=== PATIENT | male | born 1985 | race Caucasian/White ===

== ENCOUNTER 2016-10-01 09:43 | Emergency (ER) | payer OTHER ==
[~2016-10-01] VITALS: Ht 182.9 cm; Wt 108.9 kg
--- NOTE | 2016-10-01 09:58 | NUR ---
PT AMBULATED TO BED 5.
[2016-10-01 10:01] VITALS: BP 132/88
--- NOTE | 2016-10-01 10:06 | NUR ---
ER MD DR. ROBERT EVALUATING PT AT BEDSIDE.
--- NOTE | 2016-10-01 10:15 | NUR ---
31 M C/O DIZZINESS WITH RANDOM VERTIGO EPISODES X 1 DAY; PT ALSO C/O "UNABLE TO CONCENTRATE OR "FOCUS"; AAO X4; GCS=15; PERRLA BL EYES; NO ACUTE NEURO DEFICITS NOTED; LUNGS CLEAR BL; RR ARE EVEN AND UNLABORED; SKIN WARM/PINK/DRY; PT DENIES ANY FEVER, CP, SOB, OR COUGH AT THIS TIME; PATIENT STATES PAIN OF 2/10 ON A NUMERIC PAIN SCALE AT THIS TIME; PT STATES PAIN IS "ALL OVER HEAD....PRESSURE PAIN"; VSS; PATIENT POSITIONED FOR COMFORT; HOB ELEVATED; BEDRAILS UP X2; BED DOWN; ALL NEEDS MET AT THIS TIME; MD ROBERT BY BEDSIDE EXAMING PT; WILL CONTINUE TO MONITOR
[2016-10-01] MEDS: NACL 0.9% 1,000 ML IV ONE (10:24)
[2016-10-01 10:31] LABS: BASOPHILS # (AUTO) 0.3 K/uL (0.00-0.22); EOSINOPHILS # (AUTO) 0.4 K/uL (0-0.4); EOSINOPHILS % (AUTO) 6.3 % (0.0-4.0); HEMATOCRIT 44.5 % (36-52); HEMOGLOBIN 14.7 g/dL (12.0-18.0); LYMPHOCYTES % (AUTO) 31.1 % (20.5-51.1); MEAN CORPUSCULAR HEMOGLOBIN 30 pg (27-31); MEAN CORPUSCULAR HGB CONC 33 g/dL (33-37); MEAN CORPUSCULAR VOLUME 91 fL (80-94); MONOCYTES # (AUTO) 0.7 K/uL (0.8-1.0); MONOCYTES % (AUTO) 10.3 % (1.7-9.3); NEUTROPHILS % (AUTO) 48.3 % (42.2-75.2); PLATELET COUNT (AUTO) 166 K/uL (140-450); RED BLOOD CELL COUNT(AUTO) 4.92 MIL/uL (4.20-6.10); RED CELL DISTRIBUTION WIDTH 12.8 % (11.6-13.7); WHITE BLOOD COUNT (AUTO) 6.4 K/uL (4.8-10.8)
[2016-10-01] MEDS: ONDANSETRON 4 MG/2 ML VIAL IVP ONE (10:33)
[2016-10-01 10:34] LABS: APPEARANCE,URINE CLEAR (CLEAR); BILIRUBIN,URINE NEGATIVE (NEGATIVE); BLOOD, URINE NEGATIVE (NEGATIVE); COLOR,URINE YELLOW (YELLOW); LEUKOCYTE ESTERASE ,URINE NEGATIVE (NEGATIVE); NITRITE, URINE NEGATIVE (NEGATIVE); PH,URINE 6.5 (5.0-9.0); PROTEIN,URINE NEGATIVE (NEGATIVE); UGLUCOSE NEGATIVE (NEGATIVE); UROBILINOGEN,URINE 0.2 EU/dL (0.2 - 1)
[2016-10-01 10:43] LABS: BACTERIA,URINE 0-2 (RARE) /HPF (None Seen); RBC,URINE NONE SEEN /HPF (0-5); SQUAMOUS EPITHELIAL CELL,UR 0-3 (FEW) /LPF (0-3 (FEW)); WBC,URINE 0-5 (RARE) /HPF (0-5)
[2016-10-01 10:44] LABS: ANION GAP 10.8 (8-16); CALCIUM 9.2 mg/dL (8.5-10.1); CARBON DIOXIDE 28.3 mmol/L (21-32); CREATININE 1.2 mg/dL (0.7-1.3); POTASSIUM 4.1 mmol/L (3.5-5.1)
[2016-10-01 10:50] LABS: MAGNESIUM 1.9 mg/dL (1.8-2.4); TOTAL BILIRUBIN 0.7 mg/dL (0.0-1.0); TOTAL PROTEIN, SERUM 7.9 g/dL (6.4-8.2)
[2016-10-01 11:13] VITALS: BP 118/77
--- NOTE | 2016-10-01 11:13 | NUR ---
Patient discharged with v/s stable. Written and verbal after care instructions given and explained. Patient alert, oriented and verbalized understanding of instructions. Ambulatory with steady gait. All questions addressed prior to discharge. ID band removed. Patient advised to follow up with PMD. Rx of Meclizine and Zofran given. Patient educated on indication of medication including possible reaction and side effects. Opportunity to ask questions provided and answered.
== END 2016-10-01 11:13 | disposition home or self-care (01) ==
LOC: MED 09:43
DX: R42 Dizziness and giddiness (principal)
CPT/HCPCS: 36415; 80053; 81001; 82550; 83735; 84484; 85025; 93005; 96361; 96374; 99285; J2405; J7030

== ENCOUNTER 2017-02-24 11:24 | Outpatient (CLI) | payer OTHER ==
[2017-02-24 12:31] LABS: BASOPHILS # (AUTO) 0.1 K/uL (0.00-0.22); BASOPHILS % (AUTO) 1.6 % (0.0-2.0); EOSINOPHILS # (AUTO) 0.6 K/uL (0-0.4); EOSINOPHILS % (AUTO) 8.1 % (0.0-4.0); HEMATOCRIT 44.9 % (36-52); HEMOGLOBIN 15.2 g/dL (12.0-18.0); LYMPHOCYTES # (AUTO) 2.4 K/uL (2.0-11.5); LYMPHOCYTES % (AUTO) 30.5 % (20.5-51.1); MEAN CORPUSCULAR HEMOGLOBIN 30 pg (27-31); MEAN CORPUSCULAR HGB CONC 34 g/dL (33-37); MEAN CORPUSCULAR VOLUME 88 fL (80-94); MONOCYTES # (AUTO) 0.4 K/uL (0.8-1.0); MONOCYTES % (AUTO) 4.9 % (1.7-9.3); NEUTROPHILS # (AUTO) 4.5 K/uL (1.8-7.7); NEUTROPHILS % (AUTO) 54.9 % (42.2-75.2); PLATELET COUNT (AUTO) 170 K/uL (140-450); RED BLOOD CELL COUNT(AUTO) 5.08 MIL/uL (4.20-6.10); RED CELL DISTRIBUTION WIDTH 12.3 % (11.6-13.7)
[2017-02-24 13:28] LABS: ALBUMIN 4.1 g/dL (3.4-5.0); ANION GAP 11.1 (8-16); CHOL/HDL RATIO 5.5 (1-4.5); CREATININE 1.1 mg/dL (0.7-1.3); POTASSIUM 4.1 mmol/L (3.5-5.1); TOTAL BILIRUBIN 0.5 mg/dL (0.0-1.0)
== END 2017-02-24 20:05 | disposition home or self-care (01) ==
LOC: MLB 11:24
PROVIDERS: ATTEND Student in an Organized Health Care Education/Training Program
DX: F41.9 Anxiety disorder, unspecified (principal)
CPT/HCPCS: 36415; 80053; 85025

== ENCOUNTER 2017-11-16 15:53 | Outpatient (CLI) | payer OTHER ==
[2017-11-16 17:00] LABS: ALBUMIN 4.3 g/dL (3.4-5.0); ANION GAP 11.2 (8-16); CARBON DIOXIDE 27.8 mmol/L (21-32); CREATININE 1.2 mg/dL (0.7-1.3); TOTAL BILIRUBIN 0.6 mg/dL (0.0-1.0)
== END 2017-11-16 21:57 | disposition home or self-care (01) ==
LOC: MLB 15:53
DX: R74.0 Nonspecific elevation of levels of transaminase and lactic acid dehydrogenase [LDH] (principal)
CPT/HCPCS: 36415; 80053

== ENCOUNTER 2018-01-28 14:44 | Outpatient (CLI) | payer OTHER ==
[2018-01-28 16:16] LABS: POTASSIUM 3.9 mmol/L (3.5-5.1)
[2018-01-28 16:17] LABS: ANION GAP 14.5 (8-16); CARBON DIOXIDE 27.4 mmol/L (21-32)
[2018-01-28 16:18] LABS: ALBUMIN 4.1 g/dL (3.4-5.0); CREATININE 1.2 mg/dL (0.7-1.3); TOTAL BILIRUBIN 0.5 mg/dL (0.0-1.0)
== END 2018-01-28 20:48 | disposition home or self-care (01) ==
LOC: MLB 14:44
PROVIDERS: ATTEND Family Medicine
DX: R74.0 Nonspecific elevation of levels of transaminase and lactic acid dehydrogenase [LDH] (principal)
CPT/HCPCS: 36415; 80053

== ENCOUNTER 2018-08-24 13:32 | Outpatient (CLI) | payer OTHER ==
[2018-08-24 13:59] LABS: BASOPHILS % (AUTO) 0.4 % (0.0-2.0); EOSINOPHILS # (AUTO) 0.2 K/uL (0-0.4); EOSINOPHILS % (AUTO) 3.8 % (0.0-4.0); HEMOGLOBIN 15.2 g/dL (12.0-18.0); LYMPHOCYTES # (AUTO) 2.3 K/uL (2.0-11.5); LYMPHOCYTES % (AUTO) 40.1 % (20.5-51.1); MEAN CORPUSCULAR HEMOGLOBIN 31 pg (27-31); MEAN CORPUSCULAR HGB CONC 34 g/dL (33-37); MEAN CORPUSCULAR VOLUME 90.5 fL (80-94); MONOCYTES # (AUTO) 0.4 K/uL (0.8-1.0); MONOCYTES % (AUTO) 6.9 % (1.7-9.3); NEUTROPHILS # (AUTO) 2.9 K/uL (1.8-7.7); NEUTROPHILS % (AUTO) 48.8 % (42.2-75.2); PLATELET COUNT (AUTO) 176 K/uL (140-450); RED BLOOD CELL COUNT(AUTO) 4.97 MIL/uL (4.20-6.10); RED CELL DISTRIBUTION WIDTH 13.7 % (11.6-13.7); WHITE BLOOD COUNT (AUTO) 5.9 K/uL (4.8-10.8)
[2018-08-24 14:49] LABS: ANION GAP 13.3 (8-16); CARBON DIOXIDE 27.7 mmol/L (21-32); CREATININE 1.2 mg/dL (0.7-1.3)
[2018-08-24 14:55] LABS: TOTAL BILIRUBIN 0.9 mg/dL (0.0-1.0)
[2018-08-24 14:56] LABS: ALBUMIN 4.3 g/dL (3.4-5.0); MAGNESIUM 1.9 mg/dL (1.8-2.4); PHOSPHORUS 3.6 mg/dL (2.5-4.9)
[2018-08-24 17:10] LABS: URINE PROTEIN QUANT RANDOM 16.2 mg/dL (15-45)
== END 2018-08-24 20:42 | disposition home or self-care (01) ==
LOC: MLB 13:32
PROVIDERS: ATTEND Internal Medicine Nephrology
DX: N18.9 Chronic kidney disease, unspecified (principal)
CPT/HCPCS: 36415; 80053; 83735; 84100; 84157; 85025

== ENCOUNTER 2018-09-12 12:20 | Emergency (ER) | payer OTHER ==
[~2018-09-12] VITALS: Ht 182.9 cm; Wt 111.1 kg
[2018-09-12 12:21] VITALS: BP 108/67
--- NOTE | 2018-09-12 12:28 | NUR ---
PATIENT AMBULATED TO BED 2 AT THIS TIME.
--- NOTE | 2018-09-12 12:43 | NUR ---
33M C/O LEFT SHOULDER PAIN RADIATING FORWARD TO LEFT CHEST PAIN X 30 MINUTES. DENIES RECENT INURY. PT ALSO C/O HEART RATE DECREASED FROM 60S TO 50S FOR ONE WEEK AND HALF. DENIES N/V, SOB, DIAPHORESIS AND DIZZINESS/SNYCOPE. PAIN COMES AND GOES- NO SPECIFIC TRIGGERS. HX ANXIETY. TOOK XANAX EARLIER TODAY- DID NOT DECREASE CP. HX: ANXIETY MED: XANAX PRN
--- NOTE | 2018-09-12 12:47 | NUR ---
DR. ROBERT AT BEDSIDE.
[2018-09-12] MEDS ORDERED: IBUPROFEN 400 MG TAB PO ONE (13:05)
--- NOTE | 2018-09-12 13:05 | NUR ---
DR. ROBERT AT BEDSIDE WITH PATIENT.
[2018-09-12 14:38] VITALS: BP 131/72
--- NOTE | 2018-09-12 14:38 | NUR ---
Patient discharged with v/s stable. Written and verbal after care instructions given and explained. Patient verbalized understanding. Ambulatory with steady gait. All questions addressed prior to discharge. Advised to follow up with PMD.
== END 2018-09-12 14:38 | disposition home or self-care (01) ==
LOC: MED 12:20
DX: R07.9 Chest pain, unspecified (principal); M25.512 Pain in left shoulder; M62.830 Muscle spasm of back; R63.0 Anorexia; F41.9 Anxiety disorder, unspecified
CPT/HCPCS: 36415; 71045; 84484; 93005; 99284; Q0092

== ENCOUNTER 2019-01-25 01:46 | Emergency (ER) | payer OTHER ==
[~2019-01-25] VITALS: Ht 182.9 cm; Wt 113.4 kg
[2019-01-25 01:46] VITALS: BP 123/69
--- NOTE | 2019-01-25 01:46 | NUR ---
PT AMBULATED TO BED #9. AT BEDSIDE
--- NOTE | 2019-01-25 02:11 | NUR ---
33 Y/O MALE PRESENTS TO ED, C/O LEFT SIDE TINGLING SENSATION THAT STARTED THIS MORNING. PT STATES WAKING UP TO SENSATION. NO FACIAL DROOP, NO SLURRED SPEECH, NO EXTREMITY WEAKNESS. PT ABLE TO AMBULATE WITH STEADY GAIT. PT DENIES ANY CHEST PAIN. NO SOB/DIFFICULTY BREATHING NOTED. PT HAS HX OF ANXIETY; TOOK XANAX A COUPLE OF HORUS BEFORE BEING SEEN. PT AT STABLE CONDITION. ERMD AWARE. WILL CONTINUE TO MONITOR.
[2019-01-25] MEDS ORDERED: ONDANSETRON 4 MG/2 ML VIAL IVP ONE (02:25)
[2019-01-25] MEDS ORDERED: NACL 0.9% 1,000 ML IV ONE (02:25)
[2019-01-25] MEDS ORDERED: KETOROLAC 30 MG/ML VIAL IVP ONE (02:25)
--- NOTE | 2019-01-25 02:34 | NUR ---
Patient discharged with v/s stable. Written and verbal after care instructions given and explained. Patient verbalized understanding. Ambulatory with crutches . All questions addressed prior to discharge. Advised to follow up with PMD. Patient refuesed to have vital signs retaken.
[2019-01-25 02:53] LABS: HEMATOCRIT 42.4 % (36-52); HEMOGLOBIN 14.3 g/dL (12.0-18.0); MEAN CORPUSCULAR HEMOGLOBIN 31 pg (27-31); MEAN CORPUSCULAR HGB CONC 34 g/dL (33-37); MEAN CORPUSCULAR VOLUME 91.2 fL (80-94); PLATELET COUNT (AUTO) 133 K/uL (140-450); RED BLOOD CELL COUNT(AUTO) 4.65 MIL/uL (4.20-6.10); RED CELL DISTRIBUTION WIDTH 13.8 % (11.6-13.7); WHITE BLOOD COUNT (AUTO) 10.3 K/uL (4.8-10.8)
[2019-01-25 03:01] LABS: ANION GAP 16.4 (8-16); CARBON DIOXIDE 26.5 mmol/L (21-32); POTASSIUM 3.9 mmol/L (3.5-5.1)
[2019-01-25 03:07] LABS: ALBUMIN 3.8 g/dL (3.4-5.0); TOTAL BILIRUBIN 0.6 mg/dL (0.0-1.0)
[2019-01-25 03:08] LABS: EOSINOPHILS % (MANUAL) 1 % (0-4); LYMPHOCYTES % (MANUAL) 8 % (20-46); MONOCYTES % (MANUAL) 2 % (5-12)
[2019-01-25 03:30] VITALS: BP 120/67
== END 2019-01-25 03:30 | disposition home or self-care (01) ==
LOC: MED 01:46
DX: R53.1 Weakness (principal); D69.6 Thrombocytopenia, unspecified; R74.0 Nonspecific elevation of levels of transaminase and lactic acid dehydrogenase [LDH]; F17.210 Nicotine dependence, cigarettes, uncomplicated
CPT/HCPCS: 36415; 80053; 85025; 87804; 96374; 96375; 99283; J1885; J2405; J7030